=== PATIENT | male | born 1970 | race Caucasian/White ===

== ENCOUNTER → 2019-02-28 09:36 | Outpatient (CLI) | payer OTHER ==
--- NOTE | 2019-03-04 11:14 | ST ---
PATIENT:DESHAWN LIANG MEDICAL RECORD: [id number] SEX: M LOCATION:[facility] ORDER #: ADMISSION DATE: 02/28/19 AGE OF PATIENT: 48 REFERRING PHYSICIAN: INTERPRETING PHYSICIAN: TERRI COBURN MD DATE OF SERVICE: 02/28/2019 Nuclear stress test. INDICATION: Angina, shortness of breath. The patient was exercised on standard Lexiscan protocol with 27 mCi of sestamibi injected at peak stress, 9 mCi used previously for rest images. FINDINGS: Gated SPECT reveals preserved ejection fraction at 51% with good wall motioning and thickening and brightening throughout all segments. SPECT imaging Cardiolite was used as myocardial perfusion agent. There is definite reversible ischemia anteriorly, apically extending even into the lateral segments includes basal, mid, apical anterior segments, the apex itself and in the short axis view includes the entire lateral wall as well. OVERALL IMPRESSION: This is an abnormal nuclear stress test with intermediate to high risk with large area of reversibility anteriorly apically and laterally suggestive of hemodynamically significant coronary artery disease and possibly multivessel disease. We will proceed with coronary angiography as followup study. TRANSINT:[id number] Voice Confirmation ID: [id number] DOCUMENT ID: [id number] TERRI COBURN MD at 1114 CC: AVI CHENG [id number] DICTATION DATE: 03/01/19 1021 THORACIC MEDICINE PHYSICIAN: 03/01/19 2313 DEP CLI 02/28/19 [facility] [address] [place] [address]
== END | disposition home or self-care (01) ==
LOC: D.HCCARDIO 09:36
PROVIDERS: ATTEND Internal Medicine Interventional Cardiology
DX: I20.9 Angina pectoris, unspecified (principal)

== ENCOUNTER 2019-03-14 06:48 | Outpatient (CLI) | payer OTHER ==
[~2019-03-14] VITALS: Ht 190.5 cm; Wt 110.2 kg
--- NOTE | ~2019-03-14 | HEMODYNAMI ---
PATIENT:DESHAWN LIANG MEDICAL RECORD: [id number] : 70 LOCATION:[facility] ADMISSION DATE: 03/14/19 Generatedon:03/14/201910:09 Patient name: DESHAWN LIANG Patient #: [id number] : 1970 Date of study: 03/14/2019 Page: Of Hemodynamic Procedure Report Patient Data Patient Demographics Procedure consent was obtained First Name: DESHAWN Gender: Male Last Name: GARTH : 1970 Patient #: [id number] Age: 48 year(s) Race: SSN: [id number] Additional ID: [id number] Contact details Address: [address] [address] State: [place] City: [place] Zip code: [address] Admission Admission Data Admission Date: 03/14/2019 Admission Time: 6:48 Arrival Date: 03/14/2019 Arrival Time: 9:30 Admit Source: Other Insurance Payor: Private health insurance Height (in.): 74.8 BSA: 2.3 (m2) Height (cm.): 190 BMI: 28.25 (kg/m2) Weight (lbs.): 224.87 Weight (kg.): 102 Lab Results Lab Result Date: 03/14/2019 Lab Result Time: 0:00 Biochemistry Name Units Result Min Max BUN mg/dl 19 --(----)*- 7 18 Creatinine mg/dl 1.1 --(--*-)-- 0.6 1.3 CBC Name Units Result Min Max Hemoglobin g/dl 14.3 --(*---)-- 13.5 17.5 Procedure Procedure Types Cath Procedure Diagnostic Procedure LHC C w/Coronaries Procedure Description Procedure Date Procedure Date: 03/14/2019 Procedure Start Time: 9:56 Procedure End Time: 10:06 Procedure Staff Name Function Ronnie Hirsch MD Performing Physician Porsche May RT Monitor Ebonie Ring RN Nurse Maurice De RT Scrub Procedure Data Cath Procedure Fluoroscopy Diagnostic fluoroscopy Total fluoroscopy Time: 0.8 time: 0.8 min min Diagnostic fluoroscopy Total fluoroscopy dose: 314 dose: 314 mGy mGy Contrast Material Contrast Material Type Amount (ml) Isovue 300 41 Entry Location Entry Primary Successful Side Size Upsize Upsize Entry Closure Succes sful Closure Location (Fr) 1 (Fr) 2 (Fr) Remarks Device Remarks Femoral Right 5 Fr Exoseal artery Estimated blood loss: 5 ml Diagnostic catheters Device Type Used For End Catheter Placement MULTIPACK Pigtail 5 Fr LV Angiography catheter MULTIPACK JL 4.0 5Fr Left Coronary catheter Angiography MULTIPACK 3DRC 5Fr Right Coronary catheter Angiography Procedure Complications No complications Procedure Medications Medication Administration Route Dosage Oxygen etCO2 Nasal cannula 2 l/min Lidocaine 2% added to field 20 Heparin Flush Bag added to field 2 bags (1000units/500ml NS) 0.9% NaCl I.V. 100 ml/hr Versed I.V. 2 mg Fentanyl I.V. 100 mcg Versed I.V. 1 mg Fentanyl I.V. 50 mcg Hemodynamics Rest BSA: 2.3 (m2) HGB: 14.3 (g/dl) O2 Consumption: Estimated: 266.87 (ml/min) O2 Con sumption indexed: Estimated:116.03 (ml/min/m) Heart Rate: 59 (bpm) Pressure Samples Time Site Value (mmHg) Purpose Heart Use Rate(bpm) 9:57 LV 105/32,70 Snapshot 60 Snapshots Pre Cath Intra NCS Post Cath Vital Signs Time Heart Resp SPO2 etCO2 NIBP (mmHg) Rhythm Pain Sedation Rate (ipm) (%) (mmHg) Status Level (bpm) 9:41:09 65 13 99 38.2 156/104(120) NSR 0 (11) 10(A) , No pain 9:44:54 57 19 98 38.2 146/84(118) NSR 0 (11) 10(A) , No pain 9:48:37 60 10 96 22.5 143/91(125) NSR 0 (11) 10(A) , No pain 9:52:43 57 18 96 42 135/88(107) NSR 0 (11) 10(A) , No pain 9:56:45 57 17 99 41.2 131/89(108) NSR 0 (11) 9(A) , No pain 10:00:28 59 18 100 38.3 129/83(107) NSR 0 (11) 9(A) , No pain 10:04:44 57 17 100 39 137/90(0) NSR 0 (11) 10(A) , No pain Medications Time Medication Route Dose Verified Delivered Reason Notes Effe ctiveness by by 9:40:46 Oxygen etCO2 2 Ronnie Buffie used for Nasal l/min Torrey Ring RN procedure cannula 9:40:52 Lidocaine 2% added 20ml Ronnie Ronnie for local to vial Torrey Hirsch MD anesthetic field 9:41:02 Heparin Flush added 2 Ronnie Ronnie used for Bag to bags Torrey Hirsch MD procedure (1000units/500ml field NS) 9:41:10 0.9% NaCl I.V. 100 Ronnie Buffie Per ml/hr Torrey Ring RN physician 9:54:03 Fentanyl I.V. 100 Ronnie Buffie for mcg Torrey Ring RN sedation 9:54:58 Versed I.V. 2 mg Ronnie Buffie for Torrey Ring RN sedation 9:59:22 Versed I.V. 1 mg Ronnie Buffie for Torrey Ring RN sedation 9:59:26 Fentanyl I.V. 50 Ronnie Karolineie for mcg Torrey Ring RN sedation Procedure Log Time Note 9:21:42 Diagnostic Cath Status : Elective 9:22:24 Informed consent obtained and on chart 9:24:23 Admit Source: Other 9:24:33 Arrival Date: 03/14/2019 9:30:00 AM 9:24:40 Insurance Payor : Private health insurance 9:24:51 Patient Height : 74.8 inches 9:25:07 Patient Weight : 224.87 lbs 9:26:44 2) 60-89 Mildly reduced kidney function, and other findings (as for stage 1) point to kidney disease. 9:27:22 Lab Result : Creatinine 1.1 mg/dl 9:27:22 Lab Result : BUN 19 mg/dl 9:27:22 Lab Result : Hemoglobin 14.3 g/dl 9:28:54 ACC Patient presents with Stable Angina CCS Anginal Class 2--Slight limitation of ordinary activity. 9:29:49 ACCPatient has been prescribed/administered the following anti-anginal medication within the last 2 weeks: LISA-Inhibitor 9:29:57 Procedure Status Elective Heart Cath (OP). 9:29:59 Ebonie Ring RN sent for patient. Start room use. 9:30:00 Time tracking: Regular hours (M-F 7:00 - 5:00) 9:30:04 Plan of Care:Hemodynamics will remain stable., Cardiac rhythm will remain stable., Comfort level will be maintained., Respiratory function will remain adequate., Patient/ family verbilizes understanding of procedure., Procedure tolerated without complication., Recovers from procedure without complications.. 9:31:12 Patient received from Pre/Post Procedure Room to CCL 2 Alert and oriented. Tansferred to table in Supine position. 9:31:22 Warm blankets applied, and cam hugger turned on for patient comfort. 9:31:23 Correct patient and procedure confirmed by team. 9:31:24 ECG and BP/O2 sat monitors applied to patient. 9:40:34 Vital chart was started 9:40:46 Oxygen 2 l/min etCO2 Nasal cannula was administered by Ebonie Ring RN; used for procedure; 9:40:52 Lidocaine 2% 20ml vial added to field was administered by Ronnie Hirsch MD; for local anesthetic; 9:41:02 Heparin Flush Bag (1000units/500ml NS) 2 bags added to field was administered by Ronnie Hirsch MD; used for procedure; 9:41:10 0.9% NaCl 100 ml/hr I.V. was administered by Ebonie Ring RN; Per physician; 9:42:27 Baseline sample Acquired. 9:42:31 Rhythm: sinus rhythm 9:42:32 Full Disclosure recording started 9:42:37 H&P Date Dictated: 03/14/2019 Within 30 days and on chart., H&P Addendum completed by physician on day of procedure. (MUST COMPLETE FOR ALL OUTPATIENTS). 9:42:40 Pre-procedure instructions explained to patient. 9:42:42 Pre-op teaching completed and patient verbalized understanding. 9:42:47 Family unavailable. 9:43:04 Patient NPO since Midnight. 9:43:06 Is the patient allergic to Iodine/contrast media? No. 9:43:07 Was the patient premedicated? No 9:43:09 Is patient on blood thinner?No 9:43:10 Patient diabetic? No. 9:43:15 Previous problem with sedation/anesthesia? No ? 9:43:17 Snore? No 9:43:18 Sleep apnea? No 9:43:19 Deviated septum? No 9:43:19 Opens mouth fully? Yes 9:43:21 Sticks out tongue? Yes 9:43:24 Airway obstruction? No ? 9:43:28 Dentures? No ? 9:43:32 Pre procedure: right dorsailis pedis pulse 2+ Normal; easily identifiable; not easily obliterated 9:43:34 Pre procedure: left dorsailis pedis pulse 2+ Normal; easily identifiable; not easily obliterated 9:43:36 Patient pain scale 0/10 ?. 9:43:41 IV patent on arrival in left forearm with 0.9% NaCl at KVO. 9:43:42 Lab results completed and on chart. 9:43:47 Right groin area was prepped with chlora-prep and draped in sterile fashion 9:43:48 Alarms reviewed by R. N. 9:43:49 Sharps counted by scrub and verified by R.N. 9:43:57 Maximum allowable contrast dose (3.7 X eGFR X 0.75)210 ml. 9:47:47 Physician paged 9:54:03 Fentanyl 100 mcg I.V. was administered by Ebonie Ring RN; for sedation; 9:54:56 Physician arrived 9:54:57 --------ALL STOP TIME OUT------ 9:54:57 Final Timeout: patient, procedure, and site verified with staff and physician. All members of the team are in agreement. 9:54:58 Versed 2 mg I.V. was administered by Ebonie Ring RN; for sedation; 9:54:59 Right groin site verified by team. 9:55:05 Fire Safety Assessment: A--An alcohol-based skin anteseptic being used preoperatively., C--Open oxygen or nitrous oxide is being used., D--An ESU, laser, or fiber-optic light is being used. 9:55:09 Physical assessment completed. ASA score P 2 - A patient with mild systemic disease as per Ronnie Hirsch MD. 9:55:13 Sedation plan: IV Moderate Sedation Medication:Versed, Fentanyl 9:56:21 Use device set Femoral Dx 9:56:22 ACIST Syringe (47297) opened to sterile field. 9:56:22 Bag Decanter (2002S) opened to sterile field. 9:56:23 Medline Cath Pack ([id number]) opened to sterile field. 9:56:25 ACIST Hand Control (08836) opened to sterile field. 9:56:26 ACIST Manifold (97947) opened to sterile field. 9:56:28 DIAGNOSTIC Multipack 5Fr catheter set ([id number]) opened to sterile field. 9:56:28 Tegaderm 4 x 4 (1626W) opened to sterile field. 9:56:30 EMERALD Guide Wire (527-690) opened to sterile field. 9:56:31 SHEATH 5FR Sod (MCS562) opened to sterile field. 9:56:40 Procedure started. 9:56:48 Local anesthetic to right femoral artery with Lidocaine 2% by Ronnie Hirsch MD.INITIAL ACCESS ONLY 9:57:16 A MULTIPACK Pigtail 5 Fr catheter was advanced over the wire and used for LV Angiography. 9:57:39 LV hemodynamics recorded. 9:57:40 LV gram done using ODELL 9:57:42 Injector settings: Ml/sec: 5, Volume: 15, 9:57:50 EF : 60 % 9:57:53 Catheter removed. 9:58:02 A MULTIPACK JL 4.0 5Fr catheter was advanced over the wire and used for Left Coronary Angiography. 9:58:57 LCA angiography performed. 9:59:00 Injector settings: Ml/sec: 3, Volume: 6, 9:59:05 Catheter removed. 9:59:10 A MULTIPACK 3DRC 5Fr catheter was advanced over the wire and used for Right Coronary Angiography. 9:59:22 Versed 1 mg I.V. was administered by Ebonie Ring RN; for sedation; 9:59:26 Fentanyl 50 mcg I.V. was administered by Ebonie Ring RN; for sedation; 10:00:26 RCA angiography performed. 10:00:29 Injector settings: Ml/sec: 3, Volume: 6, 10:00:40 Catheter removed. 10:00:41 EXOSEAL 5Fr (EX500) opened to sterile field. 10:01:13 A 5 Fr sheath was inserted into the Right Femoral artery 10:02:15 Sheath removed intact; hemostasis achieved with Exoseal to the Right Femoral artery. 10:02:16 Procedure ended.(Physican Out) 10:05:08 Fluoroscopy time 00.80 minutes. 10:05:13 Fluoroscopy dose: 314 mGy 10:05:13 Flurop Dose total: 314 10:05:24 Dose Area Product 81278 mGy/cm. 10:05:50 Contrast amount:Isovue 300 41ml. 10:05:54 Sharps counted by scrub and verified by R.N. 10:05:55 Insertion/operative site no bleeding no hematoma. 10:05:57 Post-op/insertion site Right Femoral artery dressed using a 4 x 4 and Tegaderm. 10:06:00 Post right femoral artery:stable 10:06:06 Post Procedure Pulses reassessed and unchanged 10:06:09 Post procedure rhythm: unchanged. 10:06:12 Estimated blood loss: 5 ml 10:06:13 Post procedure instruction explained to patient.Patient verbalizes understanding. 10:06:14 Patient needs reinforcement of post procedure teaching. 10:06:19 Procedure and supply charges have been captured, reviewed, submitted and are correct. 10:06:24 Procedure Complication : No complications 10:06:26 Vital chart was stopped 10:06:26 See physician's report for complete and final results. 10:06:29 Report given to [facility]. 10:06:31 Patient transfered to [facility] with Stretcher. 10:06:33 Procedure ended. 10:06:33 Full Disclosure recording stopped 10:06:38 End room use (Document Last) Device Usage Item Name Manufacture Quantity Catalog Hospital Part Current Minimal L ot# / Number Charge Number Stock Stock Serial# Code ACIST Acist 1 36327 [id number] 300186 063200 20 Syringe Medical (44387) Systems Inc Bag Microtek 1 2001S 192102 12402 165158 5 Decanter Medical Inc. () Medline Medline 1 [id number] 947221 76494 375403 5 Cath Pack ([id number]) ACIST Hand Acist 1 76122 365331 862164 650326 5 Control Medical (33158) Systems Inc ACIST Acist 1 92501 369666 378947 507301 5 Manifold Medical (73364) Systems Inc DIAGNOSTIC Cardinal 1 [id number] 507472 99243 335999 30 [employer] 5Fr catheter set (AT9598) Tegaderm 4 3M 1 1626W 237570 112265 112476 5 x 4 (1626W) EMERALD Cardinal 1 614-055 671097 646869 413646 5 Guide Wire Health (502455) SHEATH 5FR Terumo 1 [id number] 616818 853776 916459 5 Sod (TDG146) MULTIPACK Cardinal 1 918935 5 Pigtail 5 Health Fr catheter MULTIPACK Cardinal 1 096366 5 JL 4.0 5Fr Health catheter MULTIPACK Cardinal 1 156899 5 3DRC 5Fr Health catheter EXOSEAL 5Fr Cardinal 1 EX500 641735 100350 244287 10 (EX500) Health Signature Audit [place] Stage Time Signature Unsigned Intra-Procedure 03/14/2019 Porsche May 10:09:04 AM RT(R) Signatures Performing Physician : Signature : Ronnie Hirsch MD Date : Time : Monitor : Porsche May RT Signature : Date : Time : Nurse : Ebonie Ring RN Signature : Date : Time : [address] [place] [address]
[2019-03-14 07:54] LABS: BASOPHILS 0.6 % (0-2); EOSINOPHILS 3.3 % (0-7); HEMOGLOBIN 14.3 g/dL (13.5-17.5); IMMATURE GRANULOCYTES 0.1 % (0-5); LYMPHOCYTES 32.8 % (15-50); MCH 28.3 pg (26.0-34.0); MCV 83.2 fL (80.0-100.0); MEAN PLATELET VOLUME 10.9 fL (7.4-10.4); NEUTROPHILS 53.2 % (40-80); PLATELET COUNT 193 10x3/uL (130-400); RBC 5.05 10x6/uL (4.20-6.10); RDW 15.3 % (11.5-14.5); WBC 8.9 10x3/uL (4.8-10.8)
[2019-03-14 07:55] VITALS: BP 137/93; BMI 28.1
[2019-03-14] MEDS ORDERED: LISINOPRIL10 MG PO (07:59)
[2019-03-14] MEDS ORDERED: MUPIROCIN22 GM TOPICAL (08:00)
[2019-03-14] MEDS ORDERED: NAPROSYN500 MG PO (08:00)
[2019-03-14] MEDS ORDERED: KEFLEX500 MG PO (08:01)
[2019-03-14 08:20] LABS: ALT (SGPT) 35 U/L (10-68); CALC OSMOLALITY 281 mosm/kg (275-300); CALCIUM 9.2 mg/dL (8.5-10.1); CARBON DIOXIDE 25.4 mmol/L (21.0-32.0); CHLORIDE - SERUM 105 mmol/L (98-107); CHOL - HDL RATIO 5.2 ratio (2.3-4.9); CHOLESTEROL, TOTAL 155 mg/dL (0-200); CREATININE - SERUM 1.1 mg/dL (0.6-1.3); GLUCOSE 114 mg/dL (74-106); HDL CHOLESTEROL 30 mg/dL (32-96); LDL CHOLESTEROL 99 mg/dL (0-100); LDL-HDL RATIO 3.3 ratio (1.5-3.5); POTASSIUM - SERUM 3.6 mmol/L (3.5-5.1); SODIUM 140 mmol/L (136-145); TRIGLYCERIDE 133 mg/dL (30-200); UREA NITROGEN 19 mg/dL (7-18); eGFR NON AFRICAN AMERICAN 76 mL/min (90-120)
--- NOTE | 2019-03-14 10:45 | NUR ---
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 ALERT AND ORIENTED.TELEMERTY SHOWS SR. RIGHT GROIN SOFT WITH DRSG DRY AND INTACT. PPP. DENIES ANY NEEDS.
--- NOTE | 2019-03-14 11:50 | NUR ---
RIGHT GROIN SOFT, NO BLEEDING. PP NO NEEDS VOICED
--- NOTE | 2019-03-14 12:04 | NUR ---
RIGHT GROIN SOFT WITH DRSING DRY AND INTACT. PPP TELEMERTY SHOWS SR. WILL MONITOR
[2019-03-14 14:01] VITALS: BP 115/70; Ht 190.5 cm; Wt 110.2 kg
--- NOTE | 2019-03-14 14:57 | NUR ---
ASSESSMENT COMPLETE PT RESTING QUIETLY NAD NOTED
--- NOTE | 2019-03-14 17:20 | NUR ---
UP IN ROOM. DENIES ANY NEEDS, WILL BE DISCHARGED IN AM. RIGHT GROIN DRSG DRY AND INTACT.
--- NOTE | 2019-03-14 19:59 | NUR ---
RECIEVED UP IN BED WITH EYE CLOSED. EASILY AROUSES WITH VERBAL STIMULI. ORIENTED X4. DSG TO RIGHT GROIN CDI. REQUESTED ICE CREAM AND SODA. GAVE REQUESTED ITEMS. DENIES ANY PAIN OR NEEDS AT THIS TIME. WILL CONT. POC.
[2019-03-14 20:00] VITALS: BP 112/67
[2019-03-15] VITALS: BP 131/83
[2019-03-15 04:00] VITALS: BP 123/67
--- NOTE | 2019-03-15 07:47 | NUR ---
ASSESSMENT COMPLETED. TELEMERTY SHOWS SR 69. LEFT AC SL. CATH SITE TO RIGHT GROIN WITH DRSG DRY AND INTACT. DENIES ANY NEEDS. SR UP WITH CALL LIGHT IN REACH
[2019-03-15 09:02] VITALS: BP 122/71
--- NOTE | 2019-03-15 09:53 | DS ---
PATIENT:DESHAWN LIANG :70 MEDICAL RECORD: [id number] DISCHARGE SUMMARY ADMISSION DATE: 03/14/19 DISCHARGE DATE: DISCHARGE DIAGNOSES: 1. Chest pain, noncardiac. 2. Normal cardiac catheterization. HOSPITAL COURSE: Mr. Liang presents with increasing chest pain; however, cardiac catheterization was normal. He was discharged home to follow up with his primary care physician in [place]. TRANSINT:[id number] Voice Confirmation ID: [id number] DOCUMENT ID: [id number] TERRI COBURN MD at 0953 CC: [id number] DICTATION DATE: 03/15/19911 [employer] REPAIRER: 03/15/19 [id number] [place] [address]
--- NOTE | 2019-03-15 10:13 | NUR ---
PT DISCHARGED. IV DCD WITH TIP INTACT. INSTRUCTIONS GIVEN AND SIGNED. TO PRIVATE CAR PER WHEEL CHAIR
== END 2019-03-15 10:15 | disposition home or self-care (01) ==
LOC: D.CATH 06:48 → D.M2 10:13 → D.CATH 03-15 10:15
PROVIDERS: ATTEND Internal Medicine Interventional Cardiology
DX: R94.30 Abnormal result of cardiovascular function study, unspecified (principal); I20.0 Unstable angina; R06.02 Shortness of breath